=== PATIENT | male | born 1950 | race Caucasian/White ===

== ENCOUNTER 2016-07-06 08:06 | Emergency (ER) | payer MEDICARE ==
[2016-07-06] MEDS ORDERED: Furosemide 40 MG/4 ML VIAL ONE (11:02)
== END 2016-07-06 12:06 | disposition home or self-care (01) ==
LOC: ER 08:06
DX: I50.1 Left ventricular failure, unspecified (principal); I87.2 Venous insufficiency (chronic) (peripheral); E11.9 Type 2 diabetes mellitus without complications; Z79.4 Long term (current) use of insulin; I10 Essential (primary) hypertension
CPT/HCPCS: 36415; 71010; 80053; 82553; 82947; 83880; 84484; 85025; 93005; 96374